=== PATIENT | male | born 1980 | race Caucasian/White ===

== ENCOUNTER 2020-02-01 11:08 | Emergency (ER) | payer OTHER, SELFPAY ==
--- NOTE | ~2020-02-01 | CT_ITS ---
EXAMINATION: CT abdomen pelvis wo con DATE: 02/01/2020 12:05 INDICATION: Right flank pain TECHNIQUE: Computed tomography (CT) of the abdomen and pelvis was performed without intravenous contr ast. The dose-length product (DLP) was 327.30 mGy-cm. Automated exposure control and iterative recons truction technique were employed. COMPARISON: None FINDINGS: The lung bases are clear. The heart size is normal. The liver is diffusely low in attenuati on when compared with the spleen, consistent with hepatic steatosis. The spleen, pancreas, gallbladde r, and adrenal glands are normal. There is a 3 mm stone at the right ureterovesicular junction with m ild right hydroureteronephrosis. A punctate nonobstructing right kidney stone is noted. Nonobstructin g stones of the left kidney measure up to 3 mm. No stones are present in the left ureter. No patholog ically enlarged abdominal or pelvic lymph nodes are identified. There is no free intraperitoneal gas or evidence of bowel obstruction. The appendix is normal. IMPRESSION: 1. 3 mm stone of the right ureterovesicular junction with mild right hydroureteronephrosis. 2. Bilateral nonobstructing nephrolithiasis. Reviewed, dictated and finalized at location A. [employer] IMPRESSION: 1. 3 mm stone of the right ureterovesicular junction with mild right hydrourete ronephrosis. 2. Bilateral nonobstructing nephrolithiasis.
--- NOTE | ~2020-02-01 | XR_ITS ---
EXAMINATION: XR abdomen/kub 1V INDICATION: Lower abdominal pain TECHNIQUE: Supine views of the abdomen were obtained on 2 radiographs. COMPARISON: None FINDINGS: A 3 mm calcification of the right pelvis is at the expected location of the ureterovesicula r junction and corresponds to the stone identified on CT from today. Stones of the left kidney measur e up to 3 mm. The bowel gas pattern is normal. The visualized osseous structures are unremarkable. IMPRESSION: 1. 3 mm stone projecting at the expected location of the right ureterovesicular junction. Reviewed, dictated and finalized at location A. 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
[2020-02-01 11:27] VITALS: BP 139/103; PULSE 84; RESP 16; TEMP 36.6; O2SAT 99
[2020-02-01 11:42] LABS: Basophils Absolute Auto 0.1 K/mm3 (0.0-0.1); Basophils Percent Auto 0.6 % (0.2-1.2); Eosinophils Absolute Auto 0.2 K/mm3 (0-0.3); Eosinophils Percent Auto 1.3 % (0-4.4); Hematocrit 47.6 % (42.0-52.0); Hemoglobin 16.6 g/dL (14.0-18.0); Immature Granulocyte Absolute 0.04 K/mm3 (0.00-0.031); Immature Granulocyte Percent A 0.4 % (0-0.5); Mean Corpuscular HGB Conc 34.9 g/dl (32-36); Mean Corpuscular Hemoglobin 29.3 pg (26-34); Mean Corpuscular Volume 84.1 fl (80-100); Monocytes Absolute Auto 0.5 K/mm3 (0.1-0.6); Monocytes Percent Auto 4.7 % (2.6-8.5); Platelet Count Result 268 k/mm3 (150-375); Red Blood Count 5.66 M/mm3 (4.6-6.20); Red Cell Distribution Width 12.9 % (11.5-14.5); White Blood Count 11.4 K/mm3 (4.5-10.0)
[2020-02-01 11:50] LABS: Add Urine Microscopic? YES; Appearance Urine Clear (Clear); Bilirubin Urine Negative (Negative); Blood Urine Negative (Negative); Color Urine Yellow (Yellow); Glucose Urine UA Negative (Negative); Ketones Urine Negative (Negative); Leukocyte Esterase Ur Negative LEU/UL (Negative); Mucus Urine Rare /lpf; Nitrate Urine Negative (Negative); Protein Urine 2+ mg/dL (Negative); Specific Grav Ur 1.025 (1.001-1.035); Urobilinogen Urine Negative mg/dL (<2.0); WBC Urine 0-3 /hpf
--- NOTE | 2020-02-01 12:02 | ED.FEMALEGU ---
HPI - Female Genitourinary General Chief complaint: Urogenital-Male Stated complaint: R Flank Pain Time Seen by Provider: 02/01/20 11:37 Source: patient and family Mode of arrival: ambulatory Limitations: no limitations History of Present Illness HPI Narrative: Patient is a 39-year-old male who presents with acute onset of right-sided flank pain began acutely this morning patient notes sharp stabbing colicky pain patient denies similar occurrence recent illness injury or trauma has not taken anything for his symptoms had one episode of emesis attributed to pain on arrival notes that the pain is nearly resolved does not appear uncomfortable and is resting in the room Related Data Allergies Allergy/AdvReac Type Severity Reaction Status Date / Time No Known Allergies Allergy Unverified 02/01/20 11:39 Review of Systems Review of Systems: All systems reviewed & are unremarkable except as noted in HPI and below PMFSH Family History Family History (Updated 05/10/15 @ 09:50 by DOCTOR UNKNOWN) Other Acute myocardial infarction Diabetes mellitus Family history of arthritis Hypertension Social History Social History Smoking status: Never smoker Gender identity (if verbalized by the patient): Male Exam Narrative: Exam Narrative: GENERAL: Well-appearing, well-nourished, and in no acute distress. HEAD: Normocephalic, atraumatic. EYES: PERRLA and EOMI. ENT: Nares clear, no rhinorrhea or epistaxis. Mucous membranes moist. CHEST: Clear to auscultation. No respiratory distress. No wheezes rales or rhonchi HEART: Regular rate and rhythm. No murmur heard. Normal peripheral pulses. ABDOMEN: Soft, nontender, nondistended SKIN: Warm, dry, no rash. NEURO: No focal deficits. Alert and oriented x3. PSYCH: Normal mood and affect. Course Course Emergency Course: Patient with urolithiasis 3 mm distal stone felt appropriate for outpatient reevaluation hydrate in the emergency department reporting minimal to no pain Vital Signs Vital signs: Vital Signs Temperature 97.9 F 02/01/20 11:27 Pulse Rate 84 02/01/20 11:27 Respiratory Rate 16 02/01/20 11:27 Blood Pressure 139/103 H 02/01/20 11:27 Pulse Oximetry 99 02/01/20 11:27 Temperature 97.9 F 02/01/20 11:27 Pulse Rate 84 02/01/20 11:27 Respiratory Rate 16 02/01/20 11:27 Blood Pressure 139/103 H 02/01/20 11:27 Pulse Oximetry 99 02/01/20 11:27 MDM - Female Genitourinary MDM Narrative Medical decision making narrative: Patient with urolithiasis no high risk changes in the blood work or imaging felt appropriate for discharge home had improvement of pain since onset where he is now experiencing minimal to no pain was hydrated in the emergency department will be discharged home with urology follow-up and provided with reasons to return Lab Data Result diagrams: 02/01/20 11:30 02/01/20 11:30 Labs: Lab Results 02/01/20 02/01/20 02/01/20 Range/Units 11:30 11:30 11:38 WBC 11.4 H (4.5-10.0) K/mm3 RBC 5.66 (4.6-6.20) M/mm3 Hgb 16.6 (14.0-18.0) g/dL Hct 47.6 (42.0-52.0) % MCV 84.1 (80-100) fl MCH 29.3 (26-34) pg MCHC 34.9 (32-36) g/dl RDW 12.9 (11.5-14.5) % Plt Count 268 (150-375) k/mm3 MPV 9.0 (7.4-10.4) fl Immature Gran % (Auto) 0.4 (0-0.5) % Neut % (Auto) 79.0 H (45.5-73.1) % Lymph % (Auto) 14.0 L (18.3-44.2) % [place] % (Auto) 4.7 (2.6-8.5) % Eos % (Auto) 1.3 (0-4.4) % Baso % (Auto) 0.6 (0.2-1.2) % Lymph # (Auto) 1.60 (0.9-3.2) K/mm3 [place] # (Auto) 0.5 (0.1-0.6) K/mm3 Eos # (Auto) 0.2 (0-0.3) K/mm3 Baso # (Auto) 0.1 (0.0-0.1) K/mm3 Abs Immat Gran (auto) 0.04 H (0.00-0.031) K/mm3 Absolute Neuts (auto) 9.0 H (1.3-6.7) K/mm3 Absolute Nucleated RBC 0.0 (0.0-0.012) K/mm3 Nucleated RBC % 0.0 (0.0-0.2) % Sodium 141 (137-145) mmol/L Potass
[2020-02-01] MEDS: SODIUM CHLORIDE 0.9% IV 1,000 ML 999 ML IV CONT (12:10)
[2020-02-01 12:29] LABS: Anion Gap 10 mmol/L (8-16); Blood Urea Nitrogen 16 mg/dL (9-20); Calcium 10.2 mg/dL (8.4-10.2); Carbon Dioxide 27 mmol/L (22-30); Chloride 104 mmol/L (98-107); Estimated CRCL calculation 82 ml/min; Estimated Glomerular Filt Rate > 60; Glucose 133 mg/dL (75-110); Potassium 4.4 mmol/L (3.4-5.0); Sodium 141 mmol/L (137-145)
[2020-02-01 12:40] VITALS: TEMP 36.6
[2020-02-01 12:53] VITALS: BP 127/60; PULSE 69; RESP 18; O2SAT 97
[2020-02-01] MEDS: KETOROLAC 30 MG/ML VIAL (*BKC) IV PUSH (12:53)
== END 2020-02-01 12:55 | disposition home or self-care (01) ==
PROVIDERS: Emergency Provider General Practice; PCP Family Medicine
DX: N13.2 Hydronephrosis with renal and ureteral calculous obstruction (principal)
CPT/HCPCS: 36415; 74018; 74176; 80048; 81001; 85025; 96361; 96374; 96375; 99284; J0131; J1885; J7030

== ENCOUNTER 2020-09-28 15:02 | Emergency (ER) | payer OTHER, SELFPAY ==
--- NOTE | ~2020-09-28 | CT_ITS ---
EXAMINATION: CT abdomen pelvis wo con DATE: 09/28/2020 16:06 INDICATION: Left flank pain TECHNIQUE: Computed tomography (CT) of the abdomen and pelvis was performed without intravenous contr ast. The dose-length product (DLP) was 337.41 mGy-cm. Automated exposure control and iterative recons truction technique were employed. COMPARISON: 02/01/2020 FINDINGS: Minimal dependent atelectasis is present in the lung bases. The heart size is normal. The l iver is diffusely low in attenuation when compared with the spleen, consistent with hepatic steatosis . The spleen, pancreas, gallbladder, and adrenal glands are normal. There is mild left hydroureterone phrosis. A 3 mm stone is present in the urinary bladder. There are small nonobstructing stones of the left kidney which measure up to 4 mm. A punctate nonobstructing stone is present in the right kidney upper pole. No pathologically enlarged abdominal or pelvic lymph nodes are identified. There is no f ree intraperitoneal gas or evidence of bowel obstruction. There is mild lumbar spondylosis. There is a small fat-containing umbilical hernia. IMPRESSION: 1. Mild left hydroureteronephrosis with 3 mm stone in the urinary bladder, possibly reflecting recent passage of left-sided stone. 2. Bilateral nephrolithiasis. Reviewed, dictated and finalized at location B. IMPRESSION: 1. Mild left hydroureteronephrosis with 3 mm stone in the urinary bladder, poss ibly reflecting recent passage of left-sided stone. 2. Bilateral nephrolithiasis.
--- NOTE | ~2020-09-28 | XR_ITS ---
EXAMINATION: XR abdomen/kub 1V INDICATION: Left flank pain TECHNIQUE: Supine views of the abdomen were obtained on 2 radiographs. COMPARISON: 02/01/[address] from today FINDINGS: The known stone of the urinary bladder is not definitely identified. There is a 3 mm stone of the left mid kidney. Punctate bilateral nephrolithiasis seen on CT from today is not definitely id entified. The lung bases are clear. The heart size is normal. IMPRESSION: 1. Known bladder stone not definitely identified. 2. Left nephrolithiasis. Reviewed, dictated and finalized at location B.
[2020-09-28 15:10] VITALS: BP 136/83; PULSE 69; RESP 33; TEMP 36.4; O2SAT 100
--- NOTE | 2020-09-28 15:13 | ED.ABDPAIN ---
HPI - Abdominal Pain General Chief Complaint: Abdominal Pain Stated Complaint: left flank pain Time Seen by Provider: 09/28/20 15:03 Source: patient and RN notes reviewed Mode of arrival: ambulatory Limitations: no limitations History of Present Illness HPI narrative: This is a 40 year old male who presents for evaluation of left lower abdominal and left testicular pain. He developed pain 3 hours ago located in left testicle and left lower abdomen. He states his pain was initially intermittent but now his pain is constant. He tried taking Flomax and hydrocodone at home but he developed nausea and vomiting. He denies hematuria or dysuria. He denies testicular swelling or tenderness. HE does reports history of kidney stones in the past. Related Data Allergies Allergy/AdvReac Type Severity Reaction Status Date / Time No Known Allergies Allergy Verified 09/28/20 15:13 Review of Systems Review of Systems: All systems reviewed & are unremarkable except as noted in HPI and below PMFSH Past Medical History Medical History (Updated 09/28/20 @ 17:07 by Swapna Steiner MD) Kidney stone Family History Family History (Updated 05/10/15 @ 09:50 by DOCTOR UNKNOWN) Other Acute myocardial infarction Diabetes mellitus Family history of arthritis Hypertension Social History Social History Smoking status: Never smoker Gender identity (if verbalized by the patient): Male Exam Const: General: alert Orientation/consciousness: patient oriented x3 Other: appears to be in severe pain Chest: Chest palpation & inspection: normal inspection of the chest Resp: Effort & Inspection: normal respiratory effort and no retractions Auscultation: clear to auscultation bilaterally Cardio: Rate: regular rate Rhythm: regular rhythm Heart sounds: no murmurs GI: GI Palp: Yes Soft to palpation, Yes Tenderness to palpation present (GI) (LLQ), No Guarding due to palpation present (GI) and No Rigid due to palpation Auscultation: normal bowel sounds : General: Yes no CVA tenderness Penis: Yes normal penis and Yes uncircumcised Other: no testicular swelling or tenderness Skin: General skin exam: normal color Rashes: no rashes Neuro: General: patient oriented x3, moves all extremities and CN's II-XI intact bilaterally Course Reevaluation(s) Reevaluation #1: PAtient states he feels better. I reviewed CT with patient and his . He was given 2 L IVF. He reports he has some mild residual pain . No UTI present. Date: 09/28/20 Time: 17:04 Vital Signs Vital signs: Vital Signs Temperature 97.6 F 09/28/20 15:10 Pulse Rate 69 09/28/20 15:10 Respiratory Rate 33 H 09/28/20 15:10 Blood Pressure 136/83 09/28/20 15:10 Pulse Oximetry 100 09/28/20 15:10 Temperature 97.6 F 09/28/20 15:10 Pulse Rate 94 09/28/20 18:19 Respiratory Rate 18 09/28/20 18:19 Blood Pressure 132/67 09/28/20 18:19 Pulse Oximetry 98 09/28/20 18:19 MDM - Abdominal Pain Lab Data Attestation: I reviewed the patient's lab results. Result diagrams: 09/28/20 15:16 09/28/20 15:16 Labs: Lab Results 09/28/20 09/28/20 09/28/20 Range/Units 15:16 15:16 16:44 WBC 13.4 H (4.5-10.0) K/mm3 RBC 6.42 H (4.6-6.20) M/mm3 Hgb 17.5 (14.0-18.0) g/dL Hct 52.1 H (42.0-52.0) % MCV 81.2 (80-100) fl MCH 27.3 (26-34) pg MCHC 33.6 (32-36) g/dl RDW 13.8 (11.5-14.5) % Plt Count 269 (150-375) k/mm3 MPV 9.2 (7.4-10.4) fl Immature Gran % (Auto) 0.5 (0-0.5) % Neut % (Auto) 74.8 H (45.5-73.1) % Lymph % (Auto) 17.9 L (18.3-44.2) % [place] % (Auto) 5.8 (2.6-8.5) % Eos % (Auto) 0.4 (0-4.4) % Baso % (Auto) 0.6 (0.2-1.2) % Lymph # (Auto) 2.39 (0.9-3.2) K/mm3 [place] # (Auto) 0.8 H (0.1-0.6) K/mm3 Eos # (Auto) 0.1 (0-0.3) K/mm3 Baso # (Auto) 0.1 (0.0-0
[2020-09-28] MEDS: LACTATED RINGERS 1,000 ML 999 ML IV CONT (15:23)
[2020-09-28] MEDS: HYDROmorphone HCL INJ (*CRX) 1 MG/ML SYR IV PUSH (15:23)
[2020-09-28] MEDS: ONDANSETRON INJ 4 MG/2 ML VIAL IV PUSH (15:23)
[2020-09-28 15:25] LABS: Basophils Absolute Auto 0.1 K/mm3 (0.0-0.1); Basophils Percent Auto 0.6 % (0.2-1.2); Eosinophils Absolute Auto 0.1 K/mm3 (0-0.3); Eosinophils Percent Auto 0.4 % (0-4.4); Hematocrit 52.1 % (42.0-52.0); Hemoglobin 17.5 g/dL (14.0-18.0); Immature Granulocyte Absolute 0.07 K/mm3 (0.00-0.031); Immature Granulocyte Percent A 0.5 % (0-0.5); Lymphocytes Absolute Auto 2.39 K/mm3 (0.9-3.2); Lymphocytes Percent Auto 17.9 % (18.3-44.2); Mean Corpuscular HGB Conc 33.6 g/dl (32-36); Mean Corpuscular Hemoglobin 27.3 pg (26-34); Mean Corpuscular Volume 81.2 fl (80-100); Mean Platelet Volume 9.2 fl (7.4-10.4); Monocytes Absolute Auto 0.8 K/mm3 (0.1-0.6); Monocytes Percent Auto 5.8 % (2.6-8.5); Neutrophils Percent Auto 74.8 % (45.5-73.1); Platelet Count Result 269 k/mm3 (150-375); Red Blood Count 6.42 M/mm3 (4.6-6.20); Red Cell Distribution Width 13.8 % (11.5-14.5); White Blood Count 13.4 K/mm3 (4.5-10.0)
[2020-09-28 15:35] LABS: Alanine Aminotransferase 68 U/L (4-50); Albumin Level 5.2 g/dL (3.5-5.1); Alkaline Phosphatase 105 U/L (38-126); Anion Gap 12 mmol/L (8-16); Aspartate Amino Transferase 44 U/L (17-59); Bilirubin,Total 0.9 mg/dL (0.2-1.3); Blood Urea Nitrogen 14 mg/dL (9-20); Calcium 10.6 mg/dL (8.4-10.2); Carbon Dioxide 24 mmol/L (22-30); Chloride 105 mmol/L (98-107); Estimated CRCL calculation 80 ml/min; Estimated Glomerular Filt Rate 56; Glucose 125 mg/dL (75-110); Lipase 105 U/L (23-300); Potassium 3.8 mmol/L (3.4-5.0); Sodium 141 mmol/L (137-145)
[2020-09-28] MEDS: SODIUM CHLORIDE 0.9% IV 1,000 ML 999 ML IV CONT ×2 (15:57→16:45)
--- NOTE | 2020-09-28 15:57 | PC.NURSE ---
Pt to CT scan and XRAY via stretcher. Pt unable to provide u/a sample at this time, will continue to try. Given urinal, 2ND L of fluids infusing.
[2020-09-28 16:45] VITALS: BP 129/66; PULSE 83; RESP 14; O2SAT 100
[2020-09-28 16:57] LABS: Add Urine Microscopic? YES; Appearance Urine Clear (Clear); Bilirubin Urine Negative (Negative); Blood Urine 2+ (Negative); Color Urine Yellow (Yellow); Glucose Urine UA Negative (Negative); Ketones Urine Negative (Negative); Leukocyte Esterase Ur Negative LEU/UL (Negative); Mucus Urine Rare /lpf; Nitrate Urine Negative (Negative); Protein Urine 2+ mg/dL (Negative); RBC Urine >75 /hpf (0-2); Specific Grav Ur 1.018 (1.001-1.035); Urobilinogen Urine Negative mg/dL (<2.0); WBC Urine 0-3 /hpf
[2020-09-28 17:27] VITALS: BP 119/64; PULSE 87; RESP 20; O2SAT 100
[2020-09-28 18:18] VITALS: BP 132/67; PULSE 94; RESP 18; O2SAT 98
[2020-09-28 18:19] VITALS: BP 132/67; PULSE 94; RESP 18; O2SAT 98
== END 2020-09-28 18:25 | disposition home or self-care (01) ==
PROVIDERS: Emergency Provider General Practice; PCP Family Medicine
DX: N13.2 Hydronephrosis with renal and ureteral calculous obstruction (principal); E86.0 Dehydration; Z87.442 Personal history of urinary calculi
CPT/HCPCS: 36415; 74018; 74176; 80053; 81001; 83690; 85025; 96361; 96374; 96375; 99284; J1170; J2405; J7030; J7120

== ENCOUNTER 2022-03-16 10:11 | Emergency (ER) | payer OTHER, SELFPAY ==
[2022-03-16 10:15] VITALS: BP 149/94; PULSE 81; RESP 14; TEMP 37; O2SAT 100
--- NOTE | 2022-03-16 10:38 | PC.NURSE ---
pt. states he believes he passed kidney stone. denies pain. states he is going to go home. RN instructed pt. to go to ER if ss worsen. pt. amb out of ed w/ steady gait. no signs of distress.
== END 2022-03-17 02:36 | disposition left against medical advice (07) ==
PROVIDERS: Emergency Provider Emergency Medicine; PCP Family Medicine
DX: R10.32 Left lower quadrant pain (principal)
CPT/HCPCS: 99199; J1170; J1885; J2405; J7030

== ENCOUNTER 2022-03-16 11:43 | Emergency (ER) | payer OTHER, SELFPAY ==
--- NOTE | ~2022-03-16 | CT_ITS ---
EXAMINATION: CT abdomen pelvis wo con DATE: 03/16/2022 12:20 INDICATION: Kidney stone. TECHNIQUE: Computed tomography (CT) of the abdomen and pelvis was performed without intravenous contr ast. Automated exposure control and iterative reconstruction technique were employed. The dose-length product was 348.29 mGy-cm. COMPARISON: CT abdomen and pelvis 09/28/2020 FINDINGS: The visualized portions of the lung bases are clear without pneumonia or pleural effusion. The heart size is normal. No pericardial effusion. There is diffuse hepatic steatosis. The gallbladde r, spleen, pancreas, and adrenal glands are normal. There is a 13 mm cyst in right kidney. There is a 1 mm stone in right kidney. There are 3 stones in left kidney measuring up to 4 mm. There is mild le ft hydronephrosis and hydroureter. There is a 4 mm stone at left ureterovesicular junction. There are no dilated loops of bowel. The appendix is normal. There are no pathologically enlarged lymph nodes. There is no free intraperitoneal fluid. There are benign bone islands in the proximal femora. There is mild lumbar spondylosis. IMPRESSION: 1. 4 mm stone at left ureterovesicular junction with mild left hydronephrosis and hydroureter. 2. Bilateral nonobstructing kidney stones. 3. Diffuse hepatic steatosis. Reviewed, dictated and finalized at location A. [employer] IMPRESSION: 1. 4 mm stone at left ureterovesicular junction with mild left hydronephrosis a nd hydroureter. 2. Bilateral nonobstructing kidney stones. 3. Diffuse hepatic steatosis.
[2022-03-16 11:53] VITALS: BP 147/89; PULSE 88; RESP 14; TEMP 36.6; O2SAT 100
--- NOTE | 2022-03-16 12:33 | ED.GENADULT ---
HPI - General Adult General Chief complaint: Urogenital-Male Stated complaint: possible kidney stone Time Seen by Provider: 03/16/22 12:12 History of Present Illness HPI narrative: 41-year-old male with a history of kidney stones presents to the emergency room for evaluation of left flank pain. Patient states the pain began this morning when he woke up and radiates into his left groin area. Patient describes the pain as a pounding sensation that is not alleviated or aggravated by any factors. States he took a Flomax this morning with no relief. Patient admits to decreased urine flow. Is associated with nausea Related Data Allergies Allergy/AdvReac Type Severity Reaction Status Date / Time No Known Allergies Allergy Verified 09/28/20 15:13 Review of Systems Review of Systems: CONSTITUTIONAL: Denies fever, chills, or sweats. EYES: Denies visual changes, redness, or discharge. ENT: Denies rhinorrhea, congestion, sore throat, or otalgia. CARDIOVASCULAR: Denies chest pain, palpitations, or edema. RESPIRATORY: Denies cough or dyspnea. GASTROINTESTINAL: Reports flank pain GENITOURINARY: Denies dysuria or hematuria. SKIN: Denies rash or itching. MUSCULOSKELETAL: Denies back pain, joint pain, or myalgia. NEUROLOGIC: Denies headache, numbness, dizziness, or weakness. PSYCHIATRIC: Denies anxiety or depression. [facility] Past Medical History Medical History Kidney stone Family History Family History Other Acute myocardial infarction Diabetes mellitus Family history of arthritis Hypertension Social History Social History Smoking status: Never smoker Gender identity (if verbalized by the patient): Male Exam Narrative: GENERAL: Well-appearing, well-nourished, no physical limitations, and in no acute distress. HEAD: Normocephalic, atraumatic. EYES: Conjunctivae normal, PERRLA and EOMI. CHEST: Clear to auscultation. No respiratory distress. No wheezes rales or rhonchi. HEART: Regular rate and rhythm. No murmur heard. Normal peripheral pulses. ABDOMEN: Soft, nontender, nondistended, normal active bowel sounds. BACK: Left CVA tenderness EXTREMITIES: Normal range of motion. No edema. No clubbing or cyanosis SKIN: Warm, dry, no rash. No noted wounds NEURO: No focal deficits. Alert and oriented x3. MAEW. CN's II-XI intact bilaterally, normal gait PSYCH: Cooperative. Normal mood and affect. Course Vital Signs Vital signs: Vital Signs Temperature 36.6 C 03/16/22 11:53 Pulse Rate 88 03/16/22 11:53 Respiratory Rate 14 03/16/22 11:53 Blood Pressure 147/89 H 03/16/22 11:53 Pulse Oximetry 100 03/16/22 11:53 Oxygen Delivery Room Air 03/16/22 11:53 Temperature 36.6 C 03/16/22 11:53 Pulse Rate 88 03/16/22 11:53 Respiratory Rate 14 03/16/22 11:53 Blood Pressure 147/89 H 03/16/22 11:53 Pulse Oximetry 100 03/16/22 11:53 Oxygen Delivery Room Air 03/16/22 11:53 Medical Decision Making MDM Narrative Medical decision making narrative: 41-year-old male presented with left flank pain likely due to renal colic from nonobstructed, noninfected kidney stone. CT scan showed a 4 mm stone in the distal uterovesical junction. Patient was given 2 L of fluid, Dilaudid antiemetics responded well. Patient still unable to move the stone here in emergency room. Patient was given a strainer and pain medicine. Will have patient follow-up with his PCP and urology. Vital Signs Vital Signs: Vital Signs Temperature 36.6 C 03/16/22 11:53 Pulse Rate 88 03/16/22 11:53 Respiratory Rate 14 03/16/22 11:53 Blood Pressure 147/89 H 03/16/22 11:53 Pulse Oximetry 100 03/16/22 11:53 Oxygen Delivery Room Air 03/16/22 11:53 Temperature 36.6 C 03/16/22 11:53 Pulse Rate 88 03/16/22 11:53 Respiratory Rate 14 03/16/22 11:
[2022-03-16] MEDS: SODIUM CHLORIDE 0.9% IV 1,000 ML 999 ML IV CONT ×2 (12:40→14:22)
[2022-03-16] MEDS: ONDANSETRON INJ 4 MG/2 ML VIAL IV PUSH (12:41)
[2022-03-16] MEDS: KETOROLAC 30 MG/ML VIAL (*BKC) IV PUSH (12:41)
[2022-03-16] MEDS: HYDROmorphone HCL INJ (*CRX) 1 MG/ML SYR IV PUSH (12:41)
[2022-03-16 12:50] LABS: Basophils Absolute Auto 0.1 K/mm3 (0.0-0.1); Basophils Percent Auto 0.5 % (0.2-1.2); Eosinophils Percent Auto 0.1 % (0-4.4); Hematocrit 48.2 % (42.0-52.0); Hemoglobin 16.8 g/dL (14.0-18.0); Immature Granulocyte Absolute 0.05 K/mm3 (0.00-0.031); Immature Granulocyte Percent A 0.5 % (0-0.5); Lymphocytes Absolute Auto 0.95 K/mm3 (0.9-3.2); Lymphocytes Percent Auto 8.9 % (18.3-44.2); Mean Corpuscular HGB Conc 34.9 g/dl (32-36); Mean Corpuscular Hemoglobin 29.1 pg (26-34); Mean Corpuscular Volume 83.4 fl (80-100); Mean Platelet Volume 9.1 fl (7.4-10.4); Monocytes Absolute Auto 0.5 K/mm3 (0.1-0.6); Monocytes Percent Auto 4.8 % (2.6-8.5); Neutrophils Absolute Auto 9.1 K/mm3 (1.3-6.7); Neutrophils Percent Auto 85.2 % (45.5-73.1); Platelet Count Result 223 k/mm3 (150-375); Red Blood Count 5.78 M/mm3 (4.6-6.20); White Blood Count 10.6 K/mm3 (4.5-10.0)
[2022-03-16 12:52] LABS: Add Urine Microscopic? YES; Appearance Urine Clear (Clear); Bilirubin Urine Negative (Negative); Blood Urine 1+ (Negative); Color Urine Light Yellow (Yellow); Glucose Urine UA Negative (Negative); Ketones Urine Negative (Negative); Leukocyte Esterase Ur Negative LEU/UL (Negative); Nitrate Urine Negative (Negative); Protein Urine Negative (Negative); Urobilinogen Urine 0.2 mg/dL (<2.0); pH Urine 5.5 (5.0-9.0)
[2022-03-16 13:03] LABS: Mucus Urine Rare /lpf; RBC Urine 0-2 /hpf (0-2)
[2022-03-16 13:06] LABS: Alanine Aminotransferase 75 U/L (6-50); Alkaline Phosphatase 86 U/L (38-126); Anion Gap 8 mmol/L (8-16); Aspartate Amino Transferase 41 U/L (17-59); Bilirubin,Total 0.9 mg/dL (0.2-1.3); Blood Urea Nitrogen 23 mg/dL (9-20); Calcium 9.6 mg/dL (8.4-10.2); Carbon Dioxide 28 mmol/L (22-30); Chloride 99 mmol/L (98-107); Estimated Glomerular Filt Rate 52; Glucose 116 mg/dL (65-110); Potassium 4.4 mmol/L (3.4-5.0); Sodium 135 mmol/L (137-145)
[2022-03-16 15:16] VITALS: BP 139/84; PULSE 89; RESP 16; O2SAT 99
== END 2022-03-16 15:20 | disposition home or self-care (01) ==
PROVIDERS: Emergency Medicine; Emergency Provider Nurse Practitioner Family; PCP Family Medicine
DX: N13.2 Hydronephrosis with renal and ureteral calculous obstruction (principal); Z87.442 Personal history of urinary calculi; K76.0 Fatty (change of) liver, not elsewhere classified
CPT/HCPCS: 36415; 74176; 80053; 81001; 85025; 96361; 96374; 96375; 99199; 99284; J1170; J1885; J2405; J7030